=== PATIENT | female | born 1995 | race Caucasian/White ===

== ENCOUNTER 2021-09-13 10:25 | Inpatient (IN) | payer OTHER ==
[~2021-09-13 10:25] MED LIST: PRAMET FA TAB1 EA; PROZAC20 MG PO; ZANTAC150 MG PO
[2021-09-13 11:36] LABS: HEMOGLOBIN 8.5 gm/dl (12.3-15.3); RED BLOOD COUNT 3.99 M/UL (4.00-5.10); WHITE BLOOD COUNT 10.4 K/UL (4.5-11.0)
[2021-09-13] MEDS ORDERED: COLACE 100MG C100 MG PO (17:39)
[2021-09-13] MEDS ORDERED: IBUPROFEN800 MG PO (17:39)
[2021-09-13] MEDS ORDERED: HYDROCODON-ACE1 EAC2 PO (17:39)
[2021-09-14 07:21] LABS: HEMOGLOBIN 7.6 gm/dl (12.3-15.3)
[2021-09-14] MEDS ORDERED: FERROUS SULFAT325 MG PO (10:02)
== END 2021-09-15 16:28 | disposition home or self-care (01) | DRG 787 ==
LOC: GENOP 10:25 → OB 14:58
PROVIDERS: ADMIT Obstetrics & Gynecology
PROC: 10D00Z1 Extraction of Products of Conception, Low, Open Approach (ICD-10-PCS; principal; 2021-09-13 16:32)
DX: O34.219 Maternal care for unspecified type scar from previous cesarean delivery (principal); D62 Acute posthemorrhagic anemia; O48.0 Post-term pregnancy; O99.02 Anemia complicating childbirth; Z3A.40 40 weeks gestation of pregnancy; O99.214 Obesity complicating childbirth; O77.0 Labor and delivery complicated by meconium in amniotic fluid; O99.344 Other mental disorders complicating childbirth; F32.A Depression, unspecified; E66.9 Obesity, unspecified; Z37.0 Single live birth; Z28.310 Unvaccinated for COVID-19; Z82.49 Family history of ischemic heart disease and other diseases of the circulatory system; Z81.8 Family history of other mental and behavioral disorders; Z80.3 Family history of malignant neoplasm of breast; Z80.8 Family history of malignant neoplasm of other organs or systems; Z83.49 Family history of other endocrine, nutritional and metabolic diseases
CPT/HCPCS: 36415; 82800; 85014; 85018; 85025; 86900; 86901; C9113; J0595; J0690; J1885; J2274; J2370; J2405; J2590; J3010

== ENCOUNTER 2021-10-11 22:12 | Emergency (ER) | payer OTHER ==
[~2021-10-11 22:12] MED LIST changes: +COLACE 100MG C100 MG PO; +FERROUS SULFAT325 MG PO; +HYDROCODON-ACE1 EAC2 PO; +IBUPROFEN800 MG PO
[2021-10-12 00:13] LABS: HEMOGLOBIN 10.5 gm/dl (12.3-15.3); RED BLOOD COUNT 4.8 M/UL (4.00-5.10)
[2021-10-12 00:33] LABS: BUN/CREATININE RATIO 10 (0-10)
[2021-10-12] MEDS ORDERED: BUTALB-ACETAMI1 EAC1 PO (04:43)
== END 2021-10-12 05:45 | disposition home or self-care (01) ==
LOC: ER1 22:12
PROVIDERS: Physician Assistant
DX: R51.9 Headache, unspecified (principal); R68.83 Chills (without fever); Z20.822 Contact with and (suspected) exposure to COVID-19
CPT/HCPCS: 0240U; 80053; 83605; 83735; 85025; 96374; 99284; J1885